=== PATIENT | male | born 1940 | race Caucasian/White ===

== ENCOUNTER 2017-05-01 10:29 | Day surgery (SDC) | payer MEDICARE ==
[2017-05-01] MEDS ORDERED: Lactated Ringer's 500 ML IV ONE (11:34)
[2017-05-01 11:48] VITALS: O2SAT 100
[2017-05-01] MEDS ORDERED: Propofol 10 mg/ml Inj (20 ML) ONE (13:36)
[2017-05-01 14:24] VITALS: RESP 16
[2017-05-01 14:51] VITALS: BP 145/65; PULSE 52; TEMP 97.3
== END 2017-05-01 14:56 | disposition home or self-care (01) ==
LOC: H.ENDO 10:29
PROVIDERS: ATTEND Internal Medicine Gastroenterology
DX: Z12.11 Encounter for screening for malignant neoplasm of colon (principal); E78.5 Hyperlipidemia, unspecified; I10 Essential (primary) hypertension; E11.9 Type 2 diabetes mellitus without complications; K62.1 Rectal polyp; K57.30 Diverticulosis of large intestine without perforation or abscess without bleeding; R19.5 Other fecal abnormalities
CPT/HCPCS: 45380; 88305; J2001; J2704; J7120